=== PATIENT | female | born 1975 | race Hispanic/Latino ===

== ENCOUNTER 2017-04-20 23:57 | Inpatient (IN) | payer OTHER ==
[~2017-04-20] VITALS: Ht 162.6 cm; Wt 56.8 kg
[~2017-04-20 23:57] MED LIST: KEFLEX500 MG PO; NOHOMEMEDS
[2017-04-21 00:44] LABS: EOSINOPHIL (%) 0.7 % (0-5); EOSINOPHIL COUNT 0.1 K/uL (0-0.3); HEMATOCRIT 39.5 % (36.0-46.0); IMMATURE GRANULOCYTE (%) 0.2 % (0.0-0.7); INSTRUMENT ABS NEUTROPHIL CT 5.3 K/uL; LYMPHOCYTE COUNT 2.9 K/uL (1.0-2.8); MCH 29.5 PG (29.0-34.0); MCHC 32.9 G/DL (30.0-36.0); MCV 89.8 FL (83-99); MEAN PLAT.VOLUME 9.6 uM^3 (9.5-12.4); MONOCYTE (%) 6.6 % (3-12); MONOCYTE COUNT 0.6 K/uL (0-0.8); NEUTROPHIL (%) 59.5 % (45-76); NEUTROPHIL COUNT 5.3 K/uL (1.8-6.4); PLATELET COUNT 276 K/uL (156-360); RBC DIS.WIDTH-CV 12.5 % (11.8-14.6); RBC DIS.WIDTH-SD 41.1 % (39-53); WHITE BLOOD COUNT 8.8 K/uL (4.1-10.2)
[2017-04-21 00:56] LABS: CHLORIDE 105 mEq/L (99-109); POTASSIUM 3.7 mEq/L (3.7-5.4); SODIUM 141 mEq/L (136-147)
[2017-04-21 00:59] LABS: GLUCOSE 104 mg/dL (70-99)
[2017-04-21 01:00] LABS: ANION GAP 13 MEQ/L (2-14)
[2017-04-21 01:01] LABS: TOTAL BILIRUBIN 0.3 mg/dL (0.0-1.0)
[2017-04-21 01:02] LABS: ALKALINE PHOSPHATASE 50 IU/L (3-129); SERUM ETHYL ALCOHOL < 10 mg/dL
[2017-04-21 01:03] LABS: GFR ESTIMATE (CALCULATED) > 59 mL/min/
[2017-04-21 01:04] LABS: UREA NITROGEN (BUN) 13 mg/dL (9-23)
[2017-04-21 01:14] LABS: QUANTITATIVE HCG < 4.0 MIU/ML
[2017-04-21 01:53] LABS: ADD MIUA? YES; BILIRUBIN NEGATIVE; BLOOD MODERATE; COLOR YELLOW ((YELLOW)); GLUCOSE (STRIP) NEGATIVE; KETONES NEGATIVE; LEUKOCYTES NEGATIVE; NITRITE POSITIVE; PROTEIN (STRIP) NEGATIVE; SPECIFIC GRAVITY 1.017 (1.000-1.030); UROBILINOGEN 0.2 MG/DL (0.2-1.0)
[2017-04-21 02:05] LABS: BACTERIA 3+ /HPF; EPITHELIAL CELLS RARE /HPF; MUCUS TRACE /LPF; RED BLOOD CELLS 15-20 /HPF (0-5); UCUL ADDED? YES; WHITE BLOOD CELLS 0-5 /HPF (0-5)
[2017-04-21 02:08] LABS: AMPHETAMINE NEGATIVE (500 ng/mL); BARBITURATES NEGATIVE (200 ng/mL); BENZODIAZEPINES NEGATIVE (150 ng/mL); COCAINE NEGATIVE (150 ng/mL); INTERNAL CONTROLS VALID? YES; METHADONE NEGATIVE (200 ng/mL); METHAMPHETAMINE NEGATIVE (500 ng/mL); OPIATES (MORPHINE) NEGATIVE (100 ng/mL); OXYCODONE NEGATIVE (100 ng/mL); PHENCYCLIDINE NEGATIVE (25 ng/mL); PROPOXYPHENE NEGATIVE (300 ng/mL); THC CANNABINOIDS NEGATIVE (50 ng/mL); TRICYCLIC ANTIDEPRESSANTS NEGATIVE (300 ng/mL)
[2017-04-21 05:07] VITALS: BP 107/57
[2017-04-21 08:02] VITALS: BP 90/48
[2017-04-21 15:35] VITALS: BP 105/53
[2017-04-22 07:27] VITALS: BP 105/57
[2017-04-22] MEDS ORDERED: ZOLOFT100 MG PO (09:10)
[2017-04-22] MEDS ORDERED: TRAZODONE HCL100 MG PO (09:11)
[2017-04-22] MEDS ORDERED: BACTRIM,SEPT1 TABLET PO (10:16)
== END 2017-04-22 11:13 | disposition home or self-care (01) | DRG 885 ==
LOC: EME 23:57 → EDOF 04-21 03:04 → 1WEST 04-21 03:04 → ENRESERV 04-21 03:48 → 1WEST 04-21 04:48
PROVIDERS: Emergency Medicine
DX: F33.1 Major depressive disorder, recurrent, moderate (principal); G47.00 Insomnia, unspecified
CPT/HCPCS: 80053; 81003; 82607; 82746; 84443; 84702; 85025; 87077; 87086; 87186; 90837; 99281; 99285; G0480